=== PATIENT | female | born 1955 | race Caucasian/White ===

== ENCOUNTER → 2016-05-25 | Outpatient (CLI) | payer OTHER | LOC: BRMIMAGING 13:29 | PROVIDERS: ATTEND Physician Assistant | DX: Z12.31 Encounter for screening mammogram for malignant neoplasm of breast (principal) | CPT/HCPCS: G0202 ==

== ENCOUNTER → 2016-05-28 | Outpatient (CLI) | payer OTHER | LOC: CIMAGING 12:47 | DX: R92.2 Inconclusive mammogram (principal) | CPT/HCPCS: 76641; G0206 ==

== ENCOUNTER → 2016-05-31 | Outpatient (CLI) | payer OTHER | LOC: BRMIMAGING 08:44 | PROVIDERS: ATTEND Family Medicine | DX: R05 Cough (principal) | CPT/HCPCS: 71020-PO ==